=== PATIENT | female | born 1985 | race Caucasian/White ===

== ENCOUNTER 2018-08-25 16:19 | Emergency (ER) | payer BC ==
[2018-08-25 16:57] LABS: Anion Gap 14 mmol/L (10-20); BUN (Urea Nitrogen) 4 mg/dL (7.0-18.7); Calc. Creatinine Clearance 0 mL/min (70-130); Calcium 9.4 mg/dL (7.8-10.44); Carbon Dioxide 21 mmol/L (22-29); Chloride 106 mmol/L (98-107); Estimated GFR-MDRD Greater than 90; Glucose 101 mg/dL (70-105); Potassium 3.8 mmol/L (3.5-5.1); Sodium 137 mmol/L (136-145)
[2018-08-25 17:38] LABS: #Basophils 0.1 thou/uL (0.0-0.2); #Lymphocytes 0.6 thou/uL (1.20-3.40); #Monocytes 0.5 thou/uL (0.11-0.59); #Neutrophils 6.5 thou/uL (1.40-6.50); %Basophils 0.9 % (0.0-1.0); %Eosinophils 0.4 % (0.0-10.0); %Lymphocytes 7.1 % (21.0-51.0); %Monocytes 6.8 % (0.0-10.0); %Neutrophils 84.8 % (42.0-75.0); Hemoglobin 14.1 g/dL (12.0-16.0); Mean Corpuscular HGB CONC 33.8 g/dL (32.0-36.0); Mean Corpuscular Volume 91.8 fL (78.0-98.0); Mean Platelet Volume 10.3 fL (7.4-10.4); Platelet Count 227 thou/uL (130-400); RBC Distribution Width 11.3 % (11.5-14.5); Red Blood Cell (RBC) Count 4.55 mill/uL (4.20-5.40); White Blood Cell (WBC) Count 7.7 thou/uL (4.8-10.8)
[2018-08-25 18:29] LABS: Bilirubin Small (Negative); Blood, Urine Negative (Negative); Clarity Hazy (Clear); Glucose, Urine (Dipstick) Negative (Negative); Leukocyte Negative (Negative); Nitrite Negative (Negative); Protein, Urine (Dipstick) Negative (Neg-Trace); Specific Gravity, Urine 1.026 (1.002-1.036); Urobilinogen 0.2 mg/dL (0.2-1.0); pH, Urine 5.5 (5.0-9.0)
== END 2018-08-25 19:05 | disposition home or self-care (01) ==
LOC: SCSER 16:19
DX: O99.611 Diseases of the digestive system complicating pregnancy, first trimester (principal); K52.9 Noninfective gastroenteritis and colitis, unspecified; O21.9 Vomiting of pregnancy, unspecified; Z79.899 Other long term (current) drug therapy; Z3A.01 Less than 8 weeks gestation of pregnancy
CPT/HCPCS: 36415; 80048; 81003; 84702; 85025; 96360

== ENCOUNTER 2019-08-21 14:27 | Outpatient (CLI) | payer BC ==
--- NOTE | 2019-08-21 15:39 | ULT ---
OB ULTRASOUND: 08/21/19 PROVIDED CLINICAL HISTORY: Evaluate anatomy. Single live intrauterine gestation is documented in breech presentation with estimated gestational ag e based on today's examination, 18 weeks, 0 days. heart rate of 144 beats per minute is documen markie. The placenta is posterior in location without evidence for previa. Cervical length is about 3.4 cm. Estimated weight is 215 +/- 31 grams. Amniotic fluid index is not quantified but appears qu alitatively normal. anatomic survey reveals a normal appearance to the head, cerebellum, posterior fossa, ventricular system, four chamber heart, stomach, situs, kidneys, bladder, umbilical cord and cord insertion, spine, upper and lower extremities and partially visualized lips and nose. BIOMETRY: BPD 3.91 cm 18 weeks, 0 days Head circumference 15.02 cm 18 weeks, 1 day Abdominal circumference 12.68 cm 18 weeks, 2 days Femur length 2.47 cm 17 weeks, 4 days IMPRESSION: Single live intrauterine gestation as described above, 18 weeks, 0 days by ultrasound. POS: OFF
== END 2019-08-21 14:28 | disposition home or self-care (01) ==
LOC: BICULT 14:27
PROVIDERS: ATTEND Family Medicine
DX: Z34.02 Encounter for supervision of normal first pregnancy, second trimester (principal); Z3A.18 18 weeks gestation of pregnancy
CPT/HCPCS: 76805

== ENCOUNTER 2020-01-18 08:20 | Inpatient (IN) | payer BC ==
[2020-01-26] MEDS ORDERED: Bupivacaine/Epinephrine 0.25% 30 ML VIAL ONE (09:25)
[2020-01-26] MEDS ORDERED: HYDROcodone/Acetaminophen 5/325 mg Tablet PO PRN (20:06)
[2020-01-26] MEDS ORDERED: Methylergonovine 0.2 MG/ML VIAL IM PRN (20:06)
[2020-01-26] MEDS ORDERED: Acetaminophen 500 MG TAB PO PRN (20:06)
[2020-01-26] MEDS ORDERED: NS w/ Oxytocin 10 units 500 ML IV SCH (20:06)
[2020-01-26] MEDS ORDERED: Butorphanol Tartrate 1 MG/ML VIAL SLOW IVP PRN (20:06)
[2020-01-26] MEDS ORDERED: Ibuprofen 800 MG TAB PO PRN (20:06)
[2020-01-26] MEDS ORDERED: Promethazine HCl 25 MG/ML VIAL IM PRN (20:06)
[2020-01-26] MEDS ORDERED: Acetaminophen/Codeine 30-300mg Tablet PO PRN (20:06)
[2020-01-26] MEDS ORDERED: Misoprostol 200 MCG TAB PR PRN (20:06)
[2020-01-26] MEDS ORDERED: Ondansetron PF 4 MG/2 ML Vial IVP PRN (20:06)
[2020-01-26] MEDS ORDERED: hydrALAZINE 20 MG/ML VIAL SLOW IVP PRN (20:06)
[2020-01-26] MEDS ORDERED: Lidocaine 1% (PF) 30 ML VIAL SC PRN (20:06)
[2020-01-26] MEDS: Lactated Ringer's 1,000 ML IV SCH (20:35)
[2020-01-26 20:51] LABS: Hemoglobin 12.4 g/dL (12.0-16.0); Mean Corpuscular HGB CONC 34.6 g/dL (32.0-36.0); Mean Corpuscular Hemoglobin 32.3 pg (27.0-31.0); Mean Corpuscular Volume 93.3 fL (78.0-98.0); Mean Platelet Volume 9.8 fL (7.4-10.4); Platelet Count 209 thou/uL (130-400); RBC Distribution Width 12.4 % (11.5-14.5); Red Blood Cell (RBC) Count 3.85 mill/uL (4.20-5.40); White Blood Cell (WBC) Count 9.6 thou/uL (4.8-10.8)
[2020-01-26] MEDS: Misoprostol 100 MCG TAB VAG SCH (21:05)
[2020-01-26 21:29] LABS: Syphilis Antibody Nonreactive (Nonreactive); Syphilis Antibody Index 0.08 S/CO (<1.00 Non-Reactive)
[2020-01-26 21:51] VITALS: BMI 33.6
[2020-01-26 23:44] LABS: HBSAg Index 0.19 S/CO (0-0.99); Hep B Surf Ag Non-Reactive S/CO (NonReactive)
[2020-01-27] MEDS: Lactated Ringer's 1,000 ML IV SCH ×3 (01:55→23:07)
[2020-01-27] MEDS: NS w/ Oxytocin 10 units 500 ML IV SCH ×3 (01:58→23:07)
[2020-01-27] MEDS: Misoprostol 100 MCG TAB VAG SCH ×2 (01:59→06:23)
[2020-01-27] MEDS ORDERED: Fentanyl 4 mcg/Bup 0.1% Cadd 100 ML ONE ×2 (11:22→19:49)
[2020-01-27] MEDS: Fentanyl 4 mcg/Bupivacaine 0.1% Cassette 100 ML EPIDURAL SCH ×2 (13:00→19:50)
[2020-01-27] MEDS ORDERED: EPHEDRINE 25 MG/5 ML SYRINGE SLOW IVP PRN (13:02)
[2020-01-27] MEDS ORDERED: Promethazine HCl 25 MG/ML VIAL IM PRN (13:02)
[2020-01-27] MEDS ORDERED: diphenhydrAMINE 50 MG/ML VIAL IVP PRN (13:02)
[2020-01-27] MEDS ORDERED: Ondansetron PF 4 MG/2 ML Vial IVP PRN (13:02)
[2020-01-27] MEDS ORDERED: Lactated Ringer's 500 ML IV PRN (13:02)
[2020-01-27] MEDS ORDERED: Acetaminophen 325 MG TAB PO PRN (13:02)
[2020-01-27] MEDS ORDERED: Naloxone HCl 0.4 mg/ml Vial IVP PRN ×2 (13:02)
[2020-01-27] MEDS ORDERED: Communication Order-Pharmacy FS SCH (13:15)
[2020-01-27] MEDS ORDERED: Acetaminophen 500 MG TAB PO SCH (22:00)
[2020-01-27] MEDS: AMPicillin 1 GM in Sodium Chloride 0.9% 100 ML IVPB SCH (23:08)
[2020-01-28] MEDS: Gentamicin Sulfate 80 MG in Premix Bag 1 BAG IVPB SCH ×4 (00:06→23:15)
[2020-01-28] MEDS: Misoprostol 100 MCG TAB VAG SCH ×3 (01:30→08:24)
[2020-01-28] MEDS ORDERED: Fentanyl 4 mcg/Bup 0.1% Cadd 100 ML ONE (01:59)
[2020-01-28] MEDS: Fentanyl 4 mcg/Bupivacaine 0.1% Cassette 100 ML EPIDURAL SCH (02:03)
[2020-01-28] MEDS ORDERED: Lidocaine 1% (PF) 30 ML VIAL ONE (02:22)
[2020-01-28] MEDS ORDERED: NS / Oxytocin 40 units/1000ml 1,000 ML ONE (02:22)
[2020-01-28] MEDS ORDERED: Misoprostol 200 MCG TAB ONE (04:17)
[2020-01-28] MEDS: NS / Oxytocin 40 units/1000ml 1,000 ML IV PRN ×2 (04:31→05:35)
[2020-01-28] MEDS: AMPicillin 1 GM in Sodium Chloride 0.9% 100 ML IVPB SCH ×3 (05:30→19:10)
[2020-01-28] MEDS: Lactated Ringer's 1,000 ML IV SCH (05:36)
[2020-01-28] MEDS ORDERED: Milk Of Magnesia 30 ML UDCUP PO PRN (06:16)
[2020-01-28] MEDS ORDERED: diphenhydrAMINE 25 MG CAP PO PRN (06:16)
[2020-01-28] MEDS ORDERED: Lanolin Ointment 7 GM TUBE TOP PRN (06:16)
[2020-01-28] MEDS ORDERED: Bisacodyl 10 MG SUPP PR PRN (06:16)
[2020-01-28] MEDS ORDERED: HYDROcodone/Acetaminophen 5/325 mg Tablet PO PRN (06:16)
[2020-01-28] MEDS ORDERED: Benzocaine-Menthol 82.5 ML CAN TOP PRN (06:16)
[2020-01-28] MEDS ORDERED: hydrALAZINE 20 MG/ML VIAL SLOW IVP PRN (06:16)
[2020-01-28] MEDS ORDERED: NS / Oxytocin 40 units/1000ml 1,000 ML IV SCH (06:16)
[2020-01-28] MEDS ORDERED: Acetaminophen/Codeine 30-300mg Tablet PO PRN (06:16)
[2020-01-28] MEDS ORDERED: Ondansetron PF 4 MG/2 ML Vial IVP PRN (06:16)
[2020-01-28] MEDS ORDERED: Preparation H Ointment 28 GM TUBE PR PRN (06:16)
[2020-01-28 07:43] LABS: Hemoglobin 12.4 g/dL (12.0-16.0); Mean Corpuscular HGB CONC 34.3 g/dL (32.0-36.0); Mean Corpuscular Hemoglobin 32.1 pg (27.0-31.0); Mean Corpuscular Volume 93.6 fL (78.0-98.0); Mean Platelet Volume 9.4 fL (7.4-10.4); Platelet Count 191 thou/uL (130-400); RBC Distribution Width 12.1 % (11.5-14.5); Red Blood Cell (RBC) Count 3.87 mill/uL (4.20-5.40); White Blood Cell (WBC) Count 25.2 thou/uL (4.8-10.8)
[2020-01-28 07:54] LABS: Band 2 % (5-11); Lymphocytes 4 % (21-51); MDiff Complete? YES; Monocytes 4 % (0-10); Neutrophil 90 % (42-75); Platelet Morphology Comment Appears Adequate; RBC Morphology Normal
[2020-01-28] MEDS: Ferrous Sulfate 325 MG TAB PO SCH ×2 (08:22→18:40)
[2020-01-28] MEDS: Docusate Calcium (SURFAK) 240 MG CAP PO SCH ×3 (08:41→21:34)
[2020-01-28] MEDS: Prenatal Vitamin 1 TAB PO SCH (08:41)
[2020-01-28] MEDS: Ibuprofen 800 MG TAB PO SCH ×2 (13:32→21:35)
[2020-01-29] MEDS: AMPicillin 1 GM in Sodium Chloride 0.9% 100 ML IVPB SCH ×4 (00:44→15:32)
[2020-01-29] MEDS: Ibuprofen 800 MG TAB PO SCH ×2 (05:47→13:47)
[2020-01-29] MEDS: Gentamicin Sulfate 80 MG in Premix Bag 1 BAG IVPB SCH ×2 (07:00→14:52)
[2020-01-29 08:06] VITALS: BP 130/73; TEMP 98.5
[2020-01-29] MEDS: Ferrous Sulfate 325 MG TAB PO SCH ×2 (09:02→15:32)
[2020-01-29] MEDS: Docusate Calcium (SURFAK) 240 MG CAP PO SCH (09:03)
[2020-01-29] MEDS: Prenatal Vitamin 1 TAB PO SCH (09:03)
== END 2020-01-29 17:45 | disposition home or self-care (01) | DRG 805 ==
LOC: EDSTATUS 08:20 → L&D 01-26 19:35 → 3SW 01-28 07:59
PROVIDERS: ADMIT Family Medicine; ATTEND Family Medicine
PROC: 10907ZC Drainage of Amniotic Fluid, Therapeutic from Products of Conception, Via Natural or Artificial Opening (ICD-10-PCS; 2020-01-27)
PROC: 3E033VJ Introduction of Other Hormone into Peripheral Vein, Percutaneous Approach (ICD-10-PCS; 2020-01-27)
PROC: 10D07Z6 Extraction of Products of Conception, Vacuum, Via Natural or Artificial Opening (ICD-10-PCS; principal; 2020-01-28)
PROC: 0KQM0ZZ Repair Perineum Muscle, Open Approach (ICD-10-PCS; 2020-01-28)
DX: O48.0 Post-term pregnancy (principal); O41.1230 Chorioamnionitis, third trimester, not applicable or unspecified; Z37.0 Single live birth; Z3A.41 41 weeks gestation of pregnancy; Z88.1 Allergy status to other antibiotic agents; O75.81 Maternal exhaustion complicating labor and delivery; O70.1 Second degree perineal laceration during delivery
CPT/HCPCS: 36415; 51702; 85025; 85027; 86780; 86850; 86900; 86901; 87340; 88307; J0290; J0595; J1580; J2001; J2405; J2590; J3490